=== PATIENT | male | born 1990 | race American Indian/Alaskan Native ===

== ENCOUNTER 2018-06-28 22:12 | Emergency (ER) | payer MEDICAID ==
[2018-06-28 22:28] VITALS: BMI 23.7
--- NOTE | 2018-06-28 22:50 | ED PDOC ---
Arrival/HPI - General Chief Complaint: Lower Extremity Problem/Injury Time Seen by Provider: 06/28/18 22:34 Historian: Patient - History of Present Illness Narrative History of Present Illness (Text): 06/28/18 22:47 Lilian Fry is a 28 year old male, with no significant past medical history, who presents to the Emergency department complaining of right heel pain for the past couple days. Patient reports pain is worsened when bearing weight on his right heel and notes symptoms are similar to previous episodes of muscle strain. 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 Patient denies any recent trauma/injury, weakness/numbness/tingling in the extremity, decreased range of motion, or any other complaints. Time/Duration: < week Symptom Onset: Gradual Symptom Course: Unchanged Context: Standing Past Medical History - Provider Review Nursing Documentation Reviewed: Yes - Infectious Disease Hx of Infectious Diseases: None - Psychiatric Hx Substance Use: Yes - Anesthesia Hx Anesthesia: No Family/Social History - Physician Review Nursing Documentation Reviewed: Yes Family/Social History: Unknown Family HX Smoking Status: Never Smoked Hx Alcohol Use: Yes Frequency of alcohol use: Socially Hx Substance Use: Yes Substance used: marijuana Allergies/Home Meds Allergies/Adverse Reactions: Allergies egg Allergy (Verified 06/28/18 22:22) SWELLING Review of Systems - Physician Review All systems were reviewed & negative as marked: Yes - Review of Systems Constitutional: Normal Musculoskeletal: Arthralgias (+left heel/ankle pain) Neurological: Normal. absent: Headache, Dizziness, Focal Weakness Physical Exam Vital Signs Reviewed: Yes Vital Signs Temp Pulse Resp BP Pulse Ox 06/29/18 00:12 97.8 F 79 16 125/68 100 06/28/18 22:25 97.3 F L 66 18 124/73 99 Temperature: Afebrile Blood Pressure: Normal Pulse: Regular Respiratory Rate: Normal Appearance: Positive for: Well-Appearing, Non-Toxic, Comfortable Pain Distress: None Mental Status: Positive for: Alert and Oriented X 3 - Systems Exam Head: Present: Atraumatic, Normocephalic Pupils: Present: PERRL Extroacular Muscles: Present: EOMI Conjunctiva: Present: Normal Mouth: Present: Moist Mucous Membranes Lower Extremity: Present: NORMAL PULSES, Normal ROM, Tenderness (Mild tenderness to plantar aspect of right heel), Neurovascularly Intact, Capillary Refill < 2 s. No: Edema, Cyanosis, Swelling, Erythema, Deformity, Temperature Abnormalties Neurological: Present: GCS=15, CN II-XII Intact, Speech Normal, Motor Func Grossly Intact, Normal Sensory Function Skin: Present: Warm, Dry, Normal Color. No: Rashes Psychiatric: Present: Alert, Oriented x 3, Normal Insight, Normal Concentration Medical Decision Making ED Course and Treatment: 06/28/18 22:48 Impression: 28 year old male complaining of right heel pain for the past couple of days. Differential Diagnosis included but are not limited to: muscle strain vs. sprain vs. fracture Plan: -- XR Right Foot -- Motrin -- Reassess and disposition Progress Notes: 06/28/18 23:48 XR Right Foot reviewed, shows no acute fracture, no acute processes. 06/28/18 23:52 On reevaluation the patient feels better and is in no acute distress. Patient is stable for discharge. Patient was instructed to follow up with physician/ clinic in 1-2 days or return if symptoms persist/worsen or new concerning symptoms arise. - RAD Interpretation Radiology Orders: 06/28/18 22:57 FOOT RIGHT 3 VIEWS ROUTINE [RAD] Stat Director Clinical Operations: ED Physician - Medication Orders Current Medication Orders: Discontinued Medications Ibuprofen (Motrin Tab) 600 mg PO STAT STA Stop: 06/28/18 22:59 Last Admin: 06/28/18 23:46 Dose: 600 mg MAR Pain/Vitals Document 06/28/18 23:46 IT (Rec: 06/28/18 23:46 IT [id number]) Pain Reassessment Is This A Pain ReAssessment? No Sleep Is patient sleeping during reassessment? No Presence of Pain Presence of Pain Yes - Scribe Statement The provider has reviewed the documentation as recorded by the Scribholger Lamas All medical record entries made by the Scribe were at my direction and personally dictated by me. I have reviewed the chart and agree that the record accurately reflects my personal performance of the history, physical exam, medical decision making, and the department course for this patient. I have also personally directed, reviewed, and agree with the discharge instructions and disposition. Disposition/Present on Arrival - Present on Arrival Any Indicators Present on Arrival: No History of DVT/PE: No History of Uncontrolled Diabetes: No Urinary Catheter: No History of Decub. Ulcer: No History Surgical Site Infection Following: None - Disposition Have Diagnosis and Disposition been Completed?: Yes Diagnosis: Plantar fasciitis Disposition: HOME/ ROUTINE Disposition Time: 23:52 Patient Plan: Discharge Condition: GOOD Discharge Instructions (ExitCare): Heel Pain (Caused by Plantar Fasciitis) (DC) Additional Instructions: Take meds as prescribed/avoid tight fitting shoes/wear shoes with good arch support/follow up with your doctor this week Prescriptions: Ibuprofen [Motrin] 600 mg PO TID PRN #18 tab PRN Reason: Pain, Moderate (4-7) Forms: [facility] ([employer]), WORK NOTE
[2018-06-29 00:13] VITALS: BP 125/68; PULSE 79; RESP 16; TEMP 97.8; O2SAT 100
--- NOTE | 2018-06-29 09:23 | RAD ---
Date of service: 06/28/2018 PROCEDURE: Right Foot Radiographs. HISTORY: injury COMPARISON: None. FINDINGS: BONES: Normal. No fracture. JOINTS: Normal. SOFT TISSUES: Normal. OTHER FINDINGS: None. IMPRESSION: Normal right foot radiographs.
== END 2018-06-29 00:12 | disposition home or self-care (01) ==
LOC: ED 22:12
DX: M72.2 Plantar fascial fibromatosis (principal)